=== PATIENT | female | born 1985 | race Two or more races ===

== ENCOUNTER 2024-02-18 10:55 | Outpatient (CLI) | payer OTHER | END 2024-02-18 11:14 | disposition home or self-care (01) | LOC: RAD 10:55 | PROVIDERS: ATTEND Physical Medicine & Rehabilitation Hospice and Palliative Medicine | DX: M25.571 Pain in right ankle and joints of right foot (principal); M25.521 Pain in right elbow; M77.11 Lateral epicondylitis, right elbow ==